=== PATIENT | female | born 1965 | race Caucasian/White ===

== ENCOUNTER 2018-07-25 13:08 | Observation (INO) ==
[2018-07-25 13:38] LABS: Basophils # 0.1 10*3/uL (0.0-0.2); Basophils % 0.4 % (0.0-0.8); Eosinophils # 0.1 10*3/uL (0.0-0.87); Eosinophils % 0.6 % (0.00-10.9); Hematocrit 41.5 VOL% (35.7-47.0); Hemoglobin 13.7 GM/DL (12.0-16.0); Immature Granulocytes % 0.4 %; Immature Granulocytes Absolute 0.06 #; Lymphocytes # 3.8 10*3/uL (1.4-4.0); Lymphocytes % 27.9 % (21.3-54.2); Mean Corpuscular Hemoglobin 31 PG (27-34); Mean Corpuscular Volume 92.6 FL (87-102); Mean Platelet Volume 8.6 FL (9.6-12.0); Monocytes # 0.9 10*3/uL (0.11-0.8); Monocytes % 6.7 % (1.7-12.7); Neutrophils # 8.7 10*3/uL (1.4-7.4); Platelet Count 500 T/CUMM (130-400); Red Blood Count 4.48 MC/CUMM (3.8-5.5); Red Cell Distribution Width 12.2 % (9.3-17.3); White Blood Count 13.6 T/CUMM (4-12)
[2018-07-25 13:52] LABS: INR 0.9; PT Patient Result 10.3 SECS; Partial Thromboplastin Time 25.1 SECS (0-40)
[2018-07-25 13:56] LABS: Albumin 4.3 G/DL (3.4-5.0); Bilirubin,Total 0.4 MG/DL (0.2-1.0); Calcium 12.9 MG/DL (8.5-10.1); Osmolality,Calculated 271.1 MOS/KG (273-304); Potassium 3.6 MMOL/L (3.5-5.1); Total Protein 8.2 G/DL (6.4-8.3)
[2018-07-25] MEDS ORDERED: ASPIRIN 325 MG TABLET PO STA (14:04)
[2018-07-25] MEDS ORDERED: ALUM/MAG/SIMETH/LIDO VISC 1:1 30 ML BOTTLE PO STA (14:04)
[2018-07-25] MEDS ORDERED: MORPHINE 4 MG/1 ML VIAL IV STA (14:04)
[2018-07-25] MEDS ORDERED: ONDANSETRON 4 MG/2 ML VIAL IV STA (14:04)
[2018-07-25] MEDS ORDERED: NITROGLYCERIN 2% OINT 1 INCH/GM PACK TOP STA (14:04)
[2018-07-25] MEDS ORDERED: ENOXAPARIN 100 MG/ML SYRINGE SUBCUT STA (14:04)
[2018-07-25] MEDS ORDERED: METOPROLOL TARTRATE 5 MG/5 ML VIAL IV STA (14:05)
[2018-07-25] MEDS ORDERED: MAGNESIUM SULF RIDER 2 GM in PREMIX 1 EACH IV STA (14:07)
[2018-07-25] MEDS ORDERED: ACETAMINOPHEN 325 MG TABLET PO PRN (14:28)
[2018-07-25] MEDS ORDERED: MORPHINE 4 MG/1 ML VIAL IV PRN (14:28)
[2018-07-25] MEDS ORDERED: ONDANSETRON 4 MG/2 ML VIAL IV PRN (14:28)
[2018-07-25] MEDS ORDERED: ENOXAPARIN 40 MG/0.4 ML SYRINGE SUBCUT SCH (14:30)
[2018-07-25] MEDS ORDERED: hydrALAZINE 20 MG/1 ML VIAL IV PRN (14:35)
[2018-07-25] MEDS ORDERED: SODIUM CHLORIDE 0.9% 1,000 ML IV STA (15:09)
[2018-07-25 15:42] LABS: Free T4 (Free Thyroxine) 1.15 NG/DL (0.76-1.46); Thyroid Stimulating Hormone 5.64 uIU/ml (0.358-3.74)
[2018-07-25] MEDS ORDERED: CARVEDILOL 3.125 MG TABLET ONE (16:17)
[2018-07-25] MEDS ORDERED: LISINOPRIL 10 MG TABLET ONE (16:17)
[2018-07-25] MEDS: LISINOPRIL 20 MG TABLET PO SCH ×2 (16:22→20:35)
[2018-07-25] MEDS: CARVEDILOL 12.5 MG TABLET PO SCH ×2 (16:22→20:35)
[2018-07-25] MEDS: SODIUM CHLORIDE 0.9% 1,000 ML IV SCH (16:24)
[2018-07-25] MEDS ORDERED: INFLUENZA VIRUS VACCINE 0.5 ML SYRINGE IM ONE (18:39)
[2018-07-25] MEDS: PANTOPRAZOLE 40 MG VIAL IV SCH (20:33)
[2018-07-25] MEDS: NITROGLYCERIN 2% OINT 1 INCH/GM PACK TOP SCH (20:36)
[2018-07-25] MEDS ORDERED: ESTRADIOL 1 MG TABLET PO SCH (21:00)
[2018-07-26] MEDS: SODIUM CHLORIDE 0.9% 1,000 ML IV SCH ×3 (00:10→16:36)
[2018-07-26 04:26] LABS: Basophils # 0.1 10*3/uL (0.0-0.2); Basophils % 0.6 % (0.0-0.8); Eosinophils # 0.1 10*3/uL (0.0-0.87); Eosinophils % 1.3 % (0.00-10.9); Hemoglobin 11.2 GM/DL (12.0-16.0); Immature Granulocytes % 0.4 %; Immature Granulocytes Absolute 0.04 #; Lymphocytes # 4.2 10*3/uL (1.4-4.0); Lymphocytes % 44.9 % (21.3-54.2); Mean Corpuscular Hemoglobin 30 PG (27-34); Mean Corpuscular Volume 94.6 FL (87-102); Mean Platelet Volume 8.9 FL (9.6-12.0); Monocytes # 0.7 10*3/uL (0.11-0.8); Monocytes % 7.3 % (1.7-12.7); Neutrophils # 4.3 10*3/uL (1.4-7.4); Neutrophils % 45.5 % (38.7-73.9); Platelet Count 352 T/CUMM (130-400); Red Cell Distribution Width 12.1 % (9.3-17.3); White Blood Count 9.4 T/CUMM (4-12)
[2018-07-26 05:16] LABS: Albumin 3.1 G/DL (3.4-5.0); Bilirubin,Total 0.6 MG/DL (0.2-1.0); Calcium 9.4 MG/DL (8.5-10.1); Osmolality,Calculated 275.8 MOS/KG (273-304); Potassium 4.1 MMOL/L (3.5-5.1); Risk Ratio 4.43; Total Protein 6.2 G/DL (6.4-8.3); VLDL CHOLESTEROL 53.8 MG/DL
[2018-07-26] MEDS ORDERED: MAGNESIUM SULF RIDER 2 GM in PREMIX 1 EACH IV PRN (05:36)
[2018-07-26] MEDS ORDERED: MAGNESIUM SULF RIDER 4 GM in PREMIX 1 EACH IV PRN (05:36)
[2018-07-26] MEDS ORDERED: ENOXAPARIN 40 MG/0.4 ML SYRINGE SUBCUT SCH (09:00)
[2018-07-26] MEDS ORDERED: KETOROLAC 15 MG/1 ML VIAL IV ONE (09:06)
[2018-07-26] MEDS: PANTOPRAZOLE 40 MG VIAL IV SCH (09:33)
[2018-07-26] MEDS: NITROGLYCERIN 2% OINT 1 INCH/GM PACK TOP SCH (09:34)
[2018-07-26] MEDS: CARVEDILOL 12.5 MG TABLET PO SCH (09:41)
[2018-07-26] MEDS: LISINOPRIL 20 MG TABLET PO SCH (09:41)
[2018-07-26 12:26] VITALS: BP 106/62
== END 2018-07-26 16:18 | disposition home or self-care (01) ==
LOC: N.ED 13:08 → N.EDINP 14:28 → INTOOBSV 14:28 → N.TELES 18:24
PROVIDERS: ADMIT Internal Medicine; ATTEND Internal Medicine

== ENCOUNTER 2022-05-27 05:33 | Inpatient (IN) ==
[2022-05-21 11:36] LABS: Basophils # 0.1 10*3/uL (0.0-0.2); Basophils % 0.7 % (0.0-0.8); Eosinophils # 0.1 10*3/uL (0.0-0.87); Eosinophils % 1.1 % (0.00-10.9); Hematocrit 37.7 VOL% (35.7-47.0); Hemoglobin 12.2 GM/DL (12.0-16.0); Immature Granulocytes % 0.2 %; Immature Granulocytes Absolute 0.02 #; Lymphocytes # 2.5 10*3/uL (1.4-4.0); Lymphocytes % 30.8 % (21.3-54.2); Mean Corpuscular HGB Conc 32.4 GM/DL (32-36); Mean Corpuscular Volume 93.8 FL (87-102); Mean Platelet Volume 8.8 FL (9.6-12.0); Monocytes # 0.6 10*3/uL (0.11-0.8); Neutrophils % 59.2 % (38.7-73.9); Platelet Count 358 T/CUMM (130-400); Red Blood Count 4.02 MC/CUMM (3.8-5.5); Red Cell Distribution Width 13.2 % (9.3-17.3)
[2022-05-21 11:42] LABS: Amorphous Crystals,Urine Few /HPF (Few); Bilirubin,Urine Negative (Negative); Blood, Urine Small mg/dL (Negative); Glucose,Urine (UA) Negative (Negative); Ketones,Urine Negative (Negative); Nitrite,Urine Negative (Negative); Protein,Urine Negative (Negative); RBC,Urine 1 /HPF (0-4); Squamous Epithelial Cell,Urine Occasional /HPF (0-10); Urine Appearance Slightly Hazy (Clear); Urine Color Yellow (Yellow); Urine Specific Gravity 1.014 (1.001-1.035); Urine Urobilinogen < 2.0 eU/dL (<2.0)
[2022-05-21 11:48] LABS: INR 0.9; PT Patient Result 10.5 SECS (10.1-12.1); Partial Thromboplastin Time 28.4 SECS (23.7-32.9)
[2022-05-21 12:13] LABS: Calcium 9.7 MG/DL (8.5-10.1); Osmolality,Calculated 285.3 MOS/KG (273-304); Potassium 4.5 MMOL/L (3.5-5.1)
[2022-05-27] MEDS ORDERED: ALVIMOPAN 12 MG CAPSULE PO ONE (06:00)
[2022-05-27] MEDS ORDERED: cefTRIAXone 1,000 MG in SODIUM CHLORIDE 0.9% 100 ML IV ONE (06:00)
[2022-05-27] MEDS ORDERED: MANNITOL 12.5 GM/50 ML VIAL IV ONE ×2 (06:09→09:44)
[2022-05-27] MEDS ORDERED: DEXAMETHASONE 4 MG/1 ML VIAL ONE ×2 (06:15→08:59)
[2022-05-27] MEDS ORDERED: ROPIVACAINE 0.5% 30 ML VIAL ONE (06:15)
[2022-05-27] MEDS ORDERED: LIDOCAINE 1% 5 ML VIAL ONE (06:15)
[2022-05-27] MEDS ORDERED: LIDOCAINE 2% 5 ML VIAL ONE (06:20)
[2022-05-27] MEDS ORDERED: MIDAZOLAM 2 MG/2 ML VIAL ONE (06:20)
[2022-05-27] MEDS ORDERED: ROCURONIUM 50 MG/5 ML VIAL IV ONE ×2 (06:20→08:22)
[2022-05-27] MEDS ORDERED: propofoL 200 MG/20 ML VIAL IV ONE (06:20)
[2022-05-27] MEDS ORDERED: fentaNYL 100 MCG/2 ML VIAL ONE ×2 (06:20→08:11)
[2022-05-27] MEDS ORDERED: SCOPOLAMINE 1.5 MG PATCH TRANSDERM ONE (06:40)
[2022-05-27] MEDS ORDERED: ACETAMINOPHEN 500 MG TABLET PO ONE (06:40)
[2022-05-27] MEDS ORDERED: GABAPENTIN 400 MG CAPSULE PO ONE (06:40)
[2022-05-27] MEDS: LACTATED RINGERS 1,000 ML IV SCH (07:25)
[2022-05-27] MEDS ORDERED: ePHEDrine 50 MG/ML VIAL ONE (07:40)
[2022-05-27] MEDS ORDERED: INDOCYANINE GREEN 25 MG VIAL IV ONE (07:55)
[2022-05-27] MEDS ORDERED: ONDANSETRON 4 MG/2 ML VIAL ONE (08:24)
[2022-05-27] MEDS ORDERED: PROMETHAZINE 25 MG/1 ML VIAL ONE ×2 (08:58→09:03)
[2022-05-27] MEDS ORDERED: NEOSTIGMINE 10 MG/10 ML VIAL ONE (09:02)
[2022-05-27] MEDS ORDERED: GLYCOPYRROLATE 0.4 MG/2 ML VIAL ONE (09:02)
[2022-05-27] MEDS ORDERED: LACTATED RINGERS 1,000 ML IV ONE (09:29)
[2022-05-27] MEDS ORDERED: MANNITOL 100 GM/500 ML BAG IV ONE (09:45)
[2022-05-27] MEDS ORDERED: ONDANSETRON 4 MG/2 ML VIAL IV PRN ×2 (10:48→11:48)
[2022-05-27] MEDS ORDERED: SEVOFLURANE 1 UNIT/15 MINUTE INH ONE (11:11)
[2022-05-27] MEDS ORDERED: MEPERIDINE 25 MG/1 ML VIAL IV PRN (11:48)
[2022-05-27] MEDS ORDERED: HYDROmorphone 1 MG/1 ML SYRINGE IV PRN (11:48)
[2022-05-27] MEDS: HYDROmorphone 1 MG/1 ML SYRINGE IV PRN ×3 (12:16→20:56)
[2022-05-27] MEDS: ALVIMOPAN 12 MG CAPSULE PO SCH (20:17)
[2022-05-28] MEDS: HYDROmorphone 1 MG/1 ML SYRINGE IV PRN ×2 (01:26→09:02)
[2022-05-28] MEDS: SODIUM CHLORIDE 0.9% 1,000 ML IV SCH ×2 (02:25→02:28)
[2022-05-28 05:05] LABS: Basophils % 0.1 % (0.0-0.8); Hematocrit 32.4 VOL% (35.7-47.0); Hemoglobin 10.2 GM/DL (12.0-16.0); Immature Granulocytes % 0.6 %; Immature Granulocytes Absolute 0.09 #; Lymphocytes # 1.4 10*3/uL (1.4-4.0); Mean Corpuscular HGB Conc 31.5 GM/DL (32-36); Mean Corpuscular Volume 96.7 FL (87-102); Mean Platelet Volume 8.5 FL (9.6-12.0); Monocytes # 1.3 10*3/uL (0.11-0.8); Monocytes % 8.8 % (1.7-12.7); Neutrophils % 81.5 % (38.7-73.9); Platelet Count 335 T/CUMM (130-400); Red Blood Count 3.35 MC/CUMM (3.8-5.5); Red Cell Distribution Width 13.7 % (9.3-17.3); White Blood Count 15.1 T/CUMM (4-12)
[2022-05-28 05:24] LABS: Calcium 8.7 MG/DL (8.5-10.1); Osmolality,Calculated 279.5 MOS/KG (273-304); Potassium 4.6 MMOL/L (3.5-5.1)
[2022-05-28] MEDS: ALVIMOPAN 12 MG CAPSULE PO SCH ×2 (09:02→20:33)
[2022-05-28] MEDS: LACTATED RINGERS 1,000 ML IV SCH (11:36)
[2022-05-28] MEDS: carvediloL 6.25 MG TABLET PO SCH ×2 (12:29→20:33)
[2022-05-28] MEDS: oxyCODONE/ACETAMINOPHEN 5-325 MG TABLET PO PRN (20:33)
[2022-05-29] MEDS: LACTATED RINGERS 1,000 ML IV SCH (07:29)
[2022-05-29] MEDS ORDERED: carvediloL 6.25 MG TABLET PO SCH (08:00)
[2022-05-29] MEDS: ALVIMOPAN 12 MG CAPSULE PO SCH (08:55)
[2022-05-29] MEDS: oxyCODONE/ACETAMINOPHEN 5-325 MG TABLET PO PRN (08:56)
[2022-05-29 11:06] VITALS: BP 128/78
== END 2022-05-29 13:50 | disposition home or self-care (01) | DRG 658 ==
LOC: N.OR 05:33 → N.SDSINP 05:35 → N.3E 12:54
PROVIDERS: ADMIT Urology; ATTEND Urology